=== PATIENT | female | born 1950 | race Caucasian/White ===

== ENCOUNTER 2017-10-11 17:01 | Observation (INO) | payer MEDICARE, MEDICAID ==
[~2017-10-11] VITALS: Ht 157.5 cm; Wt 66.0 kg
[~2017-10-11 17:01] MED LIST: ASPI-1265 PO; BUDE180A IH; CETI10TA15; CLOP75TA15 PO; DEXL60CA3 PO; FLUT16SP26 BOTHNARES; LEVA15HF4 INH; LEVO50TA8 PO; MULT-1133 PO; NITR0.4T SL; TIOT18CA7 IH; ZOC40T PO; [UNRECOGNIZED DRUG - OTHER]
[2017-10-11 17:24] LABS: BASOPHILS % (AUTO) 0.3 % (0-1); EOSINOPHILS % (AUTO) 0.3 % (0-6); HEMATOCRIT 37.2 % (35.0-45.0); HEMOGLOBIN 12.9 g/dl (12.0-16.0); LYMPHOCYTES # (AUTO) 1.8 X10'3 (1.1-4.8); LYMPHOCYTES % (AUTO) 18.5 % (21-51); MEAN CORPUSCULAR HEMOGLOBIN 30.3 PG (27.0-31.0); MEAN CORPUSCULAR HGB CONC 34.6 % (33.0-36.5); MEAN CORPUSCULAR VOLUME 87.6 FL (78-98); MEAN PLATELET VOLUME 8.6 FL (7.4-10.4); MONOCYTES # (AUTO) 0.4 X10'3 (0-0.9); MONOCYTES % (AUTO) 4.5 % (2-12); NEUTROPHILS # (AUTO) 7.3 X10'3 (1.8-7.7); NEUTROPHILS % (AUTO) 76.4 % (42-75); PLATELET COUNT 264 X10'3 (140-440); RED BLOOD COUNT 4.24 X10'6 (4.20-5.60); RED CELL DISTRIBUTION WIDTH 13.4 % (11.5-14.5); WHITE BLOOD COUNT 9.6 X10'3 (4.5-11.0)
[2017-10-11] MEDS ORDERED: ondansetron 4mg rapidly disintigrating tab PO ONE (17:30)
[2017-10-11 17:35] LABS: INR 1.1 INR; PARTIAL THROMBOPLASTIN TIME 30 SECONDS (22-32); PROTHROMBIN TIME 11.1 SECONDS (9.0-12.0)
[2017-10-11] MEDS: nitroGLYCERIN 0.4mg SUBLingual tab SL PRN ×2 (17:39→17:47)
[2017-10-11 17:41] LABS: ALANINE AMINOTRANSFERASE 34 U/L (12-78); ALBUMIN 3.8 G/DL (3.4-5.0); ALKALINE PHOSPHATASE 85 IU/L (46-116); ANION GAP 11 (8-16); ASPARTATE AMINO TRANSFERASE 32 U/L (10-37); BILIRUBIN,TOTAL 0.6 MG/DL (0.1-1.0); BLOOD UREA NITROGEN 13 MG/DL (7-18); BUN/CREATININE RATIO 12.6 (6.6-38.0); CALCIUM 9.9 MG/DL (8.5-10.1); CHLORIDE 91 MMOL/L (99-107); CREATININE 1.03 MG/DL (0.40-0.90); GLUCOSE 129 MG/DL (70-104); POTASSIUM 3.4 MMOL/L (3.5-5.1); SODIUM 129 MMOL/L (135-145); TOTAL CARBON DIOXIDE 27.4 MMOL/L (24-32); TOTAL PROTEIN 7.6 G/DL (6.4-8.2); eGFR 54 ML/MIN
[2017-10-11] MEDS ORDERED: MONT10TA24 PO (18:05)
[2017-10-11] MEDS ORDERED: AMLO2.5T PO (18:05)
[2017-10-11] MEDS ORDERED: LOSA25TA96 PO (18:05)
[2017-10-11] MEDS ORDERED: ATOR80TA PO (18:05)
[2017-10-11] MEDS ORDERED: [UNRECOGNIZED DRUG - OTHER] PO (18:05)
[2017-10-11] MEDS ORDERED: RIVA20TA PO (18:05)
[2017-10-11] MEDS ORDERED: ondansetron/PF 4mg/2ml inj IV ONE (18:15)
[2017-10-11] MEDS ORDERED: HYDROmorphone 1 mg/ml syringe IV ONE (18:15)
[2017-10-11] MEDS ORDERED: nitroGLYCERIN 1gm ointment UD TP ONE (18:15)
[2017-10-11] MEDS ORDERED: iohexol 350MG/ML 100ml bottle IV ONE (18:53)
[2017-10-11] MEDS ORDERED: diazepam 5mg tablet PO ONE (19:40)
[2017-10-11] MEDS ORDERED: diazepam 5mg tablet PO PRN (19:55)
[2017-10-11] MEDS ORDERED: mag hydrox/Alum hydrox/simeth 30ml oral suspension PO PRN (19:55)
[2017-10-11] MEDS ORDERED: HYDROcodone/acetaminophen 5mg/325mg tablet PO PRN (19:55)
[2017-10-11] MEDS ORDERED: potassium Cl 40MEQ/NS 500ml 500 ML IV PRN ×2 (19:55)
[2017-10-11] MEDS ORDERED: potassium Cl 20 mEq SR tablet PO PRN (19:55)
[2017-10-11] MEDS ORDERED: ondansetron/PF 4mg/2ml inj IV PRN (19:55)
[2017-10-11] MEDS ORDERED: acetaminophen 325mg tablet PO PRN (19:55)
[2017-10-11] MEDS: normal saline 1000ml 1,000 ML IV SCH ×2 (19:59→21:03)
[2017-10-11] MEDS ORDERED: nitroGLYCERIN 0.4mg SUBLingual tab SL SCH (20:00)
[2017-10-11] MEDS: ipratropium 0.5 MG/2.5ML nebule IH SCH ×2 (20:25→21:00)
[2017-10-11] MEDS ORDERED: albuterol 2.5 MG/3 ML nebule NEB PRN (20:30)
[2017-10-11 20:40] LABS: CHOL/HDL RATIO 2.3 (0.00-4.99); CHOLESTEROL 156 MG/DL (0-200); HDL CHOLESTEROL 67 MG/DL (35-60); LDL CHOLESTEROL 86 MG/DL (50-100); TRIGLYCERIDES 107 MG/DL (20-135)
[2017-10-11] MEDS: atorvastatin 20mg tablet PO SCH (20:59)
[2017-10-11] MEDS ORDERED: temazepam 15mg capsule PO PRN (21:00)
[2017-10-11 23:00] VITALS: BP 150/71
[2017-10-12] MEDS: ipratropium 0.5 MG/2.5ML nebule IH SCH ×4 (02:56→20:12)
[2017-10-12 03:00] VITALS: BP 156/76
[2017-10-12 05:47] LABS: BASOPHILS % (AUTO) 0.4 % (0-1); EOSINOPHILS # (AUTO) 0.1 X10'3 (0-0.9); EOSINOPHILS % (AUTO) 1.6 % (0-6); HEMATOCRIT 35.4 % (35.0-45.0); HEMOGLOBIN 12.3 g/dl (12.0-16.0); LYMPHOCYTES # (AUTO) 1.6 X10'3 (1.1-4.8); LYMPHOCYTES % (AUTO) 28.4 % (21-51); MEAN CORPUSCULAR HEMOGLOBIN 30.2 PG (27.0-31.0); MEAN CORPUSCULAR HGB CONC 34.7 % (33.0-36.5); MEAN PLATELET VOLUME 8.7 FL (7.4-10.4); MONOCYTES # (AUTO) 0.4 X10'3 (0-0.9); MONOCYTES % (AUTO) 7.7 % (2-12); NEUTROPHILS # (AUTO) 3.4 X10'3 (1.8-7.7); NEUTROPHILS % (AUTO) 61.9 % (42-75); PLATELET COUNT 224 X10'3 (140-440); RED BLOOD COUNT 4.07 X10'6 (4.20-5.60); RED CELL DISTRIBUTION WIDTH 13.4 % (11.5-14.5); WHITE BLOOD COUNT 5.5 X10'3 (4.5-11.0)
[2017-10-12 05:56] LABS: ALBUMIN 3.2 G/DL (3.4-5.0); ANION GAP 6 (8-16); BLOOD UREA NITROGEN 8 MG/DL (7-18); BUN/CREATININE RATIO 8.6 (6.6-38.0); CALCIUM 9.4 MG/DL (8.5-10.1); CHLORIDE 98 MMOL/L (99-107); CREATININE 0.93 MG/DL (0.40-0.90); GLUCOSE 110 MG/DL (70-104); POTASSIUM 3.2 MMOL/L (3.5-5.1); SODIUM 135 MMOL/L (135-145); TOTAL CARBON DIOXIDE 30.8 MMOL/L (24-32); eGFR 60 ML/MIN
[2017-10-12 06:00] VITALS: BP 131/61
[2017-10-12] MEDS: levoTHYROXINE 25mcg tablet PO SCH (07:44)
[2017-10-12] MEDS: metoclopramide 5 mg/ml inj IV PRN (08:18)
[2017-10-12] MEDS: acetaminophen 325mg tablet PO PRN (08:25)
[2017-10-12] MEDS: normal saline 1000ml 1,000 ML IV SCH (08:28)
[2017-10-12] MEDS: clopidogrel 75mg tablet PO SCH (08:30)
[2017-10-12] MEDS: losartan 50mg tablet PO SCH (08:30)
[2017-10-12] MEDS: montelukast 10mg tablet PO SCH (08:30)
[2017-10-12] MEDS: cetirizine 10mg tablet PO SCH (08:30)
[2017-10-12] MEDS: multivitamins, therapeutics tablet PO SCH (08:31)
[2017-10-12] MEDS: rivaroxaban 20mg tablet PO SCH (08:34)
[2017-10-12] MEDS: potassium Cl 20 mEq SR tablet PO PRN ×3 (08:42→20:28)
[2017-10-12] MEDS: K and/or MAG REPLACEMENT MC SCH (08:43)
[2017-10-12] MEDS: BUDESONIDE 0.25 MG/2 ML AMPUL.NEB IH SCH ×2 (09:19→20:12)
[2017-10-12 11:00] VITALS: BP 144/65
[2017-10-12 15:00] VITALS: BP 107/45
[2017-10-12 19:00] VITALS: BP 135/55
[2017-10-12] MEDS: metoprolol tartrate 25mg tablet PO SCH (20:29)
[2017-10-12] MEDS: atorvastatin 20mg tablet PO SCH (20:29)
[2017-10-12 23:00] VITALS: BP 117/58
[2017-10-13 03:00] VITALS: BP 134/75
[2017-10-13] MEDS: ipratropium 0.5 MG/2.5ML nebule IH SCH ×3 (03:11→15:00)
[2017-10-13 06:00] VITALS: BP 129/60
[2017-10-13 06:02] LABS: BASOPHILS % (AUTO) 0.7 % (0-1); EOSINOPHILS # (AUTO) 0.2 X10'3 (0-0.9); EOSINOPHILS % (AUTO) 3.5 % (0-6); HEMATOCRIT 36.6 % (35.0-45.0); HEMOGLOBIN 12.5 g/dl (12.0-16.0); LYMPHOCYTES # (AUTO) 1.9 X10'3 (1.1-4.8); LYMPHOCYTES % (AUTO) 32.1 % (21-51); MEAN CORPUSCULAR HGB CONC 34.1 % (33.0-36.5); MEAN CORPUSCULAR VOLUME 87.9 FL (78-98); MEAN PLATELET VOLUME 8.9 FL (7.4-10.4); MONOCYTES # (AUTO) 0.5 X10'3 (0-0.9); MONOCYTES % (AUTO) 8.8 % (2-12); NEUTROPHILS # (AUTO) 3.3 X10'3 (1.8-7.7); NEUTROPHILS % (AUTO) 54.9 % (42-75); PLATELET COUNT 233 X10'3 (140-440); RED BLOOD COUNT 4.16 X10'6 (4.20-5.60); RED CELL DISTRIBUTION WIDTH 13.2 % (11.5-14.5)
[2017-10-13 06:16] LABS: ANION GAP 5 (8-16); BLOOD UREA NITROGEN 16 MG/DL (7-18); BUN/CREATININE RATIO 19.5 (6.6-38.0); CALCIUM 9.1 MG/DL (8.5-10.1); CHLORIDE 107 MMOL/L (99-107); CREATININE 0.82 MG/DL (0.40-0.90); GLUCOSE 94 MG/DL (70-104); POTASSIUM 4.1 MMOL/L (3.5-5.1); SODIUM 140 MMOL/L (135-145); TOTAL CARBON DIOXIDE 28.3 MMOL/L (24-32); eGFR 70 ML/MIN
[2017-10-13] MEDS: levoTHYROXINE 25mcg tablet PO SCH (06:51)
[2017-10-13] MEDS: metoclopramide 5 mg/ml inj IV PRN (07:38)
[2017-10-13] MEDS: montelukast 10mg tablet PO SCH (07:48)
[2017-10-13] MEDS: losartan 50mg tablet PO SCH (07:48)
[2017-10-13] MEDS: metoprolol tartrate 25mg tablet PO SCH (07:48)
[2017-10-13] MEDS: clopidogrel 75mg tablet PO SCH (07:48)
[2017-10-13] MEDS: multivitamins, therapeutics tablet PO SCH (07:49)
[2017-10-13] MEDS: cetirizine 10mg tablet PO SCH (07:49)
[2017-10-13] MEDS: rivaroxaban 20mg tablet PO SCH (07:49)
[2017-10-13] MEDS: K and/or MAG REPLACEMENT MC SCH (08:00)
[2017-10-13] MEDS: BUDESONIDE 0.25 MG/2 ML AMPUL.NEB IH SCH (09:29)
[2017-10-13] MEDS ORDERED: BUDE180A INH (09:54)
[2017-10-13 11:00] VITALS: BP 143/58
[2017-10-13] MEDS: acetaminophen 325mg tablet PO PRN (12:45)
[2017-10-13] MEDS ORDERED: METO25TA6 PO (14:15)
[2017-10-13 15:00] VITALS: BP 115/50
== END 2017-10-13 18:02 | disposition home or self-care (01) ==
LOC: ER 17:02 → ED HOLD 19:51 → EDBEDREQ 20:11 → PCU 3S 20:51
PROVIDERS: ADMIT Hospitalist; ATTEND Internal Medicine
DX: R07.89 Other chest pain (principal); R42 Dizziness and giddiness; I16.0 Hypertensive urgency; E87.6 Hypokalemia; E87.1 Hypo-osmolality and hyponatremia; F41.9 Anxiety disorder, unspecified; I25.10 Atherosclerotic heart disease of native coronary artery without angina pectoris; I10 Essential (primary) hypertension; E78.5 Hyperlipidemia, unspecified; E78.00 Pure hypercholesterolemia, unspecified; J44.9 Chronic obstructive pulmonary disease, unspecified; M19.90 Unspecified osteoarthritis, unspecified site; E03.9 Hypothyroidism, unspecified; I70.1 Atherosclerosis of renal artery; N20.0 Calculus of kidney; Z86.718 Personal history of other venous thrombosis and embolism; Z95.1 Presence of aortocoronary bypass graft; Z95.5 Presence of coronary angioplasty implant and graft; Z82.49 Family history of ischemic heart disease and other diseases of the circulatory system; Z82.41 Family history of sudden cardiac death; Z82.5 Family history of asthma and other chronic lower respiratory diseases
CPT/HCPCS: 36415; 71045; 71275; 76700; 80048; 80053; 80061; 84484; 85025; 85610; 85730; 87070; 93005; 93306; 94640; 94760; 96361; 96374; 96375; 96376; 99285; A6258; G0378; J1170; J2405; J2765; J7030; Q9967

== ENCOUNTER 2018-11-19 18:46 | Emergency (ER) | payer MEDICARE, MEDICAID ==
[~2018-11-19] VITALS: Ht 157.5 cm; Wt 70.0 kg
[~2018-11-19 18:46] MED LIST changes: +AMLO2.5T4 PO; -ASPI-1265 PO; +ATOR80TA PO; -CETI10TA15; +LOSA25TA96 PO; +METO25TA6 PO; +MONT10TA24 PO; +RIVA20TA PO; -ZOC40T PO; -[UNRECOGNIZED DRUG - OTHER]; +[UNRECOGNIZED DRUG - OTHER] PO
[2018-11-19 19:48] LABS: BASOPHILS % (AUTO) 0.3 % (0-1); EOSINOPHILS # (AUTO) 0.1 X10'3 (0-0.9); EOSINOPHILS % (AUTO) 1.2 % (0-6); HEMATOCRIT 39.5 % (35.0-45.0); HEMOGLOBIN 13.4 g/dl (12.0-16.0); LYMPHOCYTES # (AUTO) 1.5 X10'3 (1.1-4.8); LYMPHOCYTES % (AUTO) 12.8 % (21-51); MEAN CORPUSCULAR HEMOGLOBIN 30.7 PG (27.0-31.0); MEAN CORPUSCULAR VOLUME 90.3 FL (78-98); MEAN PLATELET VOLUME 9.4 FL (7.4-10.4); MONOCYTES # (AUTO) 1.2 X10'3 (0-0.9); MONOCYTES % (AUTO) 10.5 % (2-12); NEUTROPHILS # (AUTO) 8.9 X10'3 (1.8-7.7); NEUTROPHILS % (AUTO) 75.2 % (42-75); PLATELET COUNT 283 X10'3 (140-440); RED BLOOD COUNT 4.37 X10'6 (4.20-5.60); RED CELL DISTRIBUTION WIDTH 14.2 % (11.5-14.5); WHITE BLOOD COUNT 11.8 X10'3 (4.5-11.0)
[2018-11-19] MEDS ORDERED: diphenhydrAMINE 50 mg/ml inj IV ONE (19:50)
[2018-11-19] MEDS ORDERED: traMADol 50MG tablet PO ONE (19:50)
[2018-11-19] MEDS ORDERED: metoclopramide 5 mg/ml inj IV ONE (19:50)
[2018-11-19 20:01] LABS: PARTIAL THROMBOPLASTIN TIME 29 SECONDS (22-32)
[2018-11-19 20:03] LABS: ALANINE AMINOTRANSFERASE 26 U/L (12-78); ALBUMIN 3.5 G/DL (3.4-5.0); ALBUMIN/GLOBULIN RATIO 0.8 (1.1-1.5); ALKALINE PHOSPHATASE 77 IU/L (46-116); ANION GAP 14 (8-16); ASPARTATE AMINO TRANSFERASE 17 U/L (10-37); BILIRUBIN,TOTAL 0.5 MG/DL (0.1-1.0); BLOOD UREA NITROGEN 12 MG/DL (7-18); BUN/CREATININE RATIO 11.1 (6.6-38.0); CALCIUM 8.9 MG/DL (8.5-10.1); CHLORIDE 101 MMOL/L (99-107); CREATININE 1.08 MG/DL (0.40-0.90); GLUCOSE 157 MG/DL (70-104); POTASSIUM 3.2 MMOL/L (3.5-5.1); SODIUM 139 MMOL/L (135-145); TOTAL CARBON DIOXIDE 24.1 MMOL/L (24-32); TOTAL PROTEIN 7.8 G/DL (6.4-8.2); eGFR 51 ML/MIN
[2018-11-19 21:29] VITALS: BP 122/58
== END 2018-11-19 21:31 | disposition home or self-care (01) ==
LOC: ER 18:47
DX: R10.13 Epigastric pain (principal); I25.10 Atherosclerotic heart disease of native coronary artery without angina pectoris; E78.00 Pure hypercholesterolemia, unspecified; I10 Essential (primary) hypertension; J43.9 Emphysema, unspecified; E03.9 Hypothyroidism, unspecified; M19.90 Unspecified osteoarthritis, unspecified site; Z95.1 Presence of aortocoronary bypass graft; Z98.890 Other specified postprocedural states; Z88.2 Allergy status to sulfonamides; Z88.5 Allergy status to narcotic agent; Z88.8 Allergy status to other drugs, medicaments and biological substances; Z79.899 Other long term (current) drug therapy
CPT/HCPCS: 36415; 71045; 74176; 80053; 84484; 85025; 85610; 85730; 93005; 96374; 96375; 99284; J1200; J2765

== ENCOUNTER 2019-04-09 03:35 | Outpatient (CLI) | payer MEDICARE, MEDICAID | END 2019-04-09 23:59 | disposition home or self-care (01) | LOC: DIABETIC 03:35 | PROVIDERS: ATTEND Internal Medicine Interventional Cardiology | DX: E78.5 Hyperlipidemia, unspecified (principal); I25.10 Atherosclerotic heart disease of native coronary artery without angina pectoris; I73.9 Peripheral vascular disease, unspecified; E78.00 Pure hypercholesterolemia, unspecified; I10 Essential (primary) hypertension; J44.9 Chronic obstructive pulmonary disease, unspecified | CPT/HCPCS: 97802 ==

== ENCOUNTER 2022-04-29 17:42 | Emergency (ER) | payer MEDICARE, MEDICAID ==
[~2022-04-29] VITALS: Ht 157.5 cm; Wt 72.0 kg
[~2022-04-29 17:42] MED LIST changes: +LOP25T PO; -METO25TA6 PO; +MONT-40 PO; -MONT10TA24 PO
[2022-04-29 18:42] LABS: BASOPHILS % (AUTO) 0.4 % (0-1); EOSINOPHILS # (AUTO) 0.1 X10'3 (0-0.9); EOSINOPHILS % (AUTO) 0.7 % (0-6); HEMATOCRIT 31.2 % (35.0-45.0); HEMOGLOBIN 10.4 g/dl (12.0-16.0); MEAN CORPUSCULAR HEMOGLOBIN 29.4 PG (27.0-31.0); MEAN CORPUSCULAR HGB CONC 33.4 g/dL (33.0-36.5); MEAN CORPUSCULAR VOLUME 87.9 FL (78-98); MEAN PLATELET VOLUME 7.8 FL (7.4-10.4); MONOCYTES # (AUTO) 0.7 X10'3 (0-0.9); MONOCYTES % (AUTO) 6.6 % (2-12); NEUTROPHILS # (AUTO) 9.2 X10'3 (1.8-7.7); NEUTROPHILS % (AUTO) 83.3 % (42-75); PLATELET COUNT 296 X10'3 (140-440); RED BLOOD COUNT 3.55 X10'6 (4.20-5.60); RED CELL DISTRIBUTION WIDTH 13.9 % (11.5-14.5); WHITE BLOOD COUNT 11.1 X10'3 (4.5-11.0)
[2022-04-29] MEDS ORDERED: iohexol 350MG/ML 100ml bottle IV ONE (18:51)
[2022-04-29 18:56] LABS: APTT 25 SECONDS (22-32)
[2022-04-29 18:58] LABS: ALANINE AMINOTRANSFERASE 20 U/L (12-78); ALBUMIN 3.1 G/DL (3.4-5.0); ALBUMIN/GLOBULIN RATIO 0.9 (1.1-1.5); ALKALINE PHOSPHATASE 86 IU/L (46-116); ANION GAP 10 (8-16); ASPARTATE AMINO TRANSFERASE 32 U/L (10-37); BILIRUBIN,TOTAL 0.5 MG/DL (0.1-1.0); BLOOD UREA NITROGEN 20 MG/DL (7-18); BUN/CREATININE RATIO 25.3 (6.6-38.0); CALCIUM 8.6 MG/DL (8.5-10.1); CHLORIDE 100 MMOL/L (99-107); CREATININE 0.79 MG/DL (0.40-0.90); GLUCOSE 143 MG/DL (70-104); POTASSIUM 3.9 MMOL/L (3.5-5.1); SODIUM 132 MMOL/L (135-145); TOTAL CARBON DIOXIDE 22.2 MMOL/L (24-32); TOTAL PROTEIN 6.5 G/DL (6.4-8.2); eGFR 72 ML/MIN
[2022-04-29] MEDS ORDERED: acetaminophen 325mg tablet PO ONE (20:20)
[2022-04-29] MEDS ORDERED: ondansetron/PF 4mg/2ml inj IV ONE (20:20)
[2022-04-29] MEDS ORDERED: normal saline 1000ML IV soln IVB ONE (22:40)
[2022-04-29 22:55] LABS: HEMATOCRIT 28.4 % (35.0-45.0); HEMOGLOBIN 9.6 g/dl (12.0-16.0); MEAN CORPUSCULAR HEMOGLOBIN 29.6 PG (27.0-31.0); MEAN PLATELET VOLUME 7.6 FL (7.4-10.4); PLATELET COUNT 274 X10'3 (140-440); RED BLOOD COUNT 3.26 X10'6 (4.20-5.60); RED CELL DISTRIBUTION WIDTH 13.8 % (11.5-14.5); WHITE BLOOD COUNT 8.6 X10'3 (4.5-11.0)
[2022-04-29 23:02] LABS: CLARITY,URINE CLEAR (Clear); COLOR,URINE YELLOW (Yellow); GLUCOSE, URINE NEGATIVE (Neg); KETONES,URINE NEGATIVE (Neg); LEUKOCYTE ESTERASE ,URINE NEGATIVE (Neg); NITRITES, URINE NEGATIVE (Neg); OCCULT BLOOD,URINE NEGATIVE (Neg); PH,URINE 5.5 (4.8-8.0); PROTEIN,URINE NEGATIVE (Neg); UROBILINOGEN,URINE 0.2 E.U/dL (0.2-1.0)
[2022-04-29 23:05] LABS: UA COLLECTION TYPE CLN CATCH MIDSTREAM
[2022-04-30 00:33] VITALS: BP 138/65
== END 2022-04-30 01:10 | disposition home or self-care (01) ==
LOC: ER 17:42
DX: R10.9 Unspecified abdominal pain (principal); R11.0 Nausea; R42 Dizziness and giddiness; R91.8 Other nonspecific abnormal finding of lung field; I25.10 Atherosclerotic heart disease of native coronary artery without angina pectoris; E78.00 Pure hypercholesterolemia, unspecified; I10 Essential (primary) hypertension; E03.9 Hypothyroidism, unspecified; J44.9 Chronic obstructive pulmonary disease, unspecified; M19.90 Unspecified osteoarthritis, unspecified site; Z95.1 Presence of aortocoronary bypass graft; Z98.890 Other specified postprocedural states; Z88.2 Allergy status to sulfonamides; Z88.5 Allergy status to narcotic agent; Z79.899 Other long term (current) drug therapy
CPT/HCPCS: 36415; 71045; 71275; 74174; 80053; 81003; 83605; 83735; 83880; 84484; 85025; 85027; 85610; 85730; 86885; 86900; 86901; 93005; 96361; 96374; 99285; J2405; J3490; J7030; Q9967